=== PATIENT | male | born 1970 | race American Indian/Alaskan Native ===

== ENCOUNTER 2017-03-12 02:17 | Emergency (ER) | payer MEDICAID ==
[2017-03-12 02:24] VITALS: TEMP 98
[2017-03-12 02:25] VITALS: BMI 23.7
--- NOTE | 2017-03-12 02:32 | ED PDOC ---
Arrival/HPI - General Chief Complaint: Shortness Of Breath Time Seen by Provider: 03/12/17 02:24 Historian: Patient - History of Present Illness Narrative History of Present Illness (Text): 03/12/17 02:29 David Mcallister is a 47 year old male who presents to the emergency department via EMS complaining of 2 hour duration of shortness of breath. En route, patient was give 125mg Solumedrol, 1 duoneb, and 2 albuterol treatments for minimal relief. Denies fever, chills, headache, chest pain, palpitations, nausea , vomiting, diarrhea, urinary symptoms or any other complaints at this time. Time/Duration: 1-3 hours Symptom Course: Unchanged Severity Level: Mild Activities at Onset: Light Past Medical History - Provider Review Nursing Documentation Reviewed: Yes - Infectious Disease Hx of Infectious Diseases: None - Cardiac Hx Cardiac Disorders: No - Pulmonary Hx Asthma: Yes Hx Bronchitis: Yes - Neurological Hx Neurological Disorder: No - HEENT Hx HEENT Disorder: No - Renal Hx Renal Disorder: No - Endocrine/Metabolic Hx Endocrine Disorders: No - Hematological/Oncological Hx Blood Disorders: No - Integumentary Hx Dermatological Disorder: No - Musculoskeletal/Rheumatological Hx Musculoskeletal Disorders: No - Gastrointestinal Hx Gastrointestinal Disorders: No - Genitourinary/Gynecological Hx Genitourinary Disorders: No - Psychiatric Hx Psychophysiologic Disorder: No Hx Substance Use: No - Anesthesia Hx Anesthesia: No - Suicidal Assessment Feels Threatened In Home Enviroment: No Family/Social History - Physician Review Nursing Documentation Reviewed: Yes Family/Social History: No Known Family HX Smoking Status: Heavy Smoker > 10 Cigarettes Daily Hx Alcohol Use: Yes Hx Substance Use: No Substance used: herion Allergies/Home Meds Allergies/Adverse Reactions: Allergies No Known Allergies Allergy (Verified 03/12/17 02:26) Review of Systems - Physician Review All systems were reviewed & negative as marked: Yes - Review of Systems Constitutional: Normal. absent: Fatigue, Fevers Respiratory: SOB, Cough. absent: Sputum Cardiovascular: Normal. absent: Chest Pain, Palpitations Gastrointestinal: Normal. absent: Abdominal Pain, Diarrhea, Nausea, Vomiting Neurological: Normal. absent: Headache, Dizziness Physical Exam Vital Signs Reviewed: Yes Vital Signs Temp Pulse Resp BP Pulse Ox 03/12/17 04:17 76 18 119/66 100 03/12/17 02:35 24 100 03/12/17 02:24 98 F 76 24 124/94 H 96 Temperature: Afebrile Blood Pressure: Normal Pulse: Regular Respiratory Rate: Normal Appearance: Positive for: Well-Appearing, Non-Toxic, Comfortable Pain Distress: None Mental Status: Positive for: Alert and Oriented X 3 - Systems Exam Head: Present: Atraumatic, Normocephalic Pupils: Present: PERRL Conjunctiva: Present: Normal Mouth: Present: Moist Mucous Membranes Respiratory/Chest: Present: Wheezes (b/l expiratory wheezing ). No: Respiratory Distress, Accessory Muscle Use Cardiovascular: Present: Regular Rate and Rhythm, Normal S1, S2. No: Murmurs Abdomen: Present: Normal Bowel Sounds. No: Tenderness, Distention, Peritoneal Signs Upper Extremity: Present: Normal Inspection. No: Cyanosis, Edema Lower Extremity: Present: Normal Inspection. No: Edema Neurological: Present: GCS=15, CN II-XII Intact, Speech Normal, Motor Func Grossly Intact, Normal Sensory Function Skin: Present: Warm, Dry, Normal Color. No: Rashes Psychiatric: Present: Alert, Oriented x 3 Medical Decision Making ED Course and Treatment: 03/12/17 02:35 Impression: A 47 year old male who presents to the emergency department complaining of 2 hour duration of shortness of breath. Plan: -- EKG -- Labs, cardiac enzymes -- Chest X-ray -- Duoneb -- Blood Culture -- Reassess and disposition Progress Notes: 03/12/17 02:35 EKG reviewed by me: NSR @ 68 bpm. normal axis. normal interval. Re-evaluation Time: 06:40 Reassessment Condition: Re-examined, Improved - Lab Interpretations Lab Results: 03/12/17 02:29 03/12/17 02:29 Lab Results 03/12/17 02:29: Sodium 134, Chloride 99, Potassium 4.1, Carbon Dioxide 29, Anion Gap 10, BUN 15, Creatinine 0.9, Est GFR ( Amer) > 60, Est GFR (Non- Af Amer) > 60, Random Glucose 118 H, Calcium 8.8, Total Bilirubin 0.3, AST 71 H , ALT 53, Alkaline Phosphatase 59, Lactate Dehydrogenase 881 H, Total Creatine Kinase 919 H, CK-MB (CK-2) 9.1 H, CK-MB (CK-2) % 1.0 L, Troponin I < 0.01, NT- Pro-B Natriuret Pep 36.6, Total Protein 6.5, Albumin 3.5, Globulin 3.0, Albumin/ Globulin Ratio 1.2 03/12/17 02:29: pO2 146 H, VBG pH 7.35, VBG pCO2 54.0, VBG HCO3 29.8 H, VBG Total CO2 31.5 H, VBG O2 Sat (Calc) 99.8 H, VBG Base Excess 2.9 H, VBG Potassium 4.1, Sodium 134.0, Chloride 101.0, Glucose 127 H, Lactate 1.4, FiO2 21.0, Venous Blood Potassium 4.1 03/12/17 02:29: WBC 4.8, RBC 4.13, Hgb 12.2 L, Hct 35.3 L, MCV 85.5, MCH 29.5, MCHC 34.6, RDW 12.4, Plt Count 223, MPV 11.0, Gran % 39.1 L, Lymph % (Auto) 36.2 H, [place] % (Auto) 10.8 H, Eos % (Auto) 13.1 H, Baso % (Auto) 0.8, Gran # 1.88, Lymph # 1.7, [place] # 0.5, Eos # 0.6, Baso # 0.04 - RAD Interpretation Radiology Orders: 03/12/17 02:26 CHEST PORTABLE [RAD] Stat - Medication Orders Current Medication Orders: Discontinued Medications Albuterol/Ipratropium (Duoneb 3 Mg/0.5 Mg (3 Ml) Ud) 3 ml IH Q15M ALEXI Stop: 03/12/17 03:01 Last Admin: 03/12/17 03:18 Dose: 3 ml - Scribe Statement The provider has reviewed the documentation as recorded by the Sandra Garcia Provider Attestation: All medical record entries made by the Sandra were at my direction and personally dictated by me. I have reviewed the chart and agree that the record accurately reflects my personal performance of the history, physical exam, medical decision making, and the department course for this patient. I have also personally directed, reviewed, and agree with the discharge instructions and disposition. Disposition/Present on Arrival - Present on Arrival Any Indicators Present on Arrival: No History of DVT/PE: No History of Uncontrolled Diabetes: No Urinary Catheter: No History of Decub. Ulcer: No History Surgical Site Infection Following: None - Disposition Have Diagnosis and Disposition been Completed?: Yes Diagnosis: Exacerbation of asthma Disposition: HOME/ ROUTINE Disposition Time: 06:40 Condition: GOOD Discharge Instructions (ExitCare): Asthma (ED) Prescriptions: Albuterol 0.5% [Albuterol 0.5% Inhal Ginger (2.5 mg/0.5 ml) UD] 2.5 mg IH QID #25 neb Prednisone [Deltasone] 3 tab PO DAILY #12 tablet Albuterol HFA [Ventolin HFA 90 mcg/actuation (8 g)] 2 puff IH Q6 #1 inhaler Forms: [employer] (Tunisian)
[2017-03-12] MEDS: Albuterol-Ipratrop 3 mg / 0.5 (3 ml) UD IH SCH ×3 (02:41→03:18)
[2017-03-12 02:42] LABS: BASO # 0.04 K/mm3 (0.0-2.0); BASO % 0.8 % (0.0-3.0); EOS # 0.6 (0.0-0.7); EOS % 13.1 % (1.5-5.0); GRAN # 1.88 (1.4-6.5); GRAN % 39.1 % (50.0-68.0); HEMATOCRIT 35.3 % (42.0-52.0); LYMPH # 1.7 (1.2-3.4); LYMPH % 36.2 % (22.0-35.0); MEAN CELL VOLUME 85.5 fl (80.0-105.0); MEAN CORPUSCULAR HEMOGLOBIN 29.5 pg (25.0-35.0); MEAN CORPUSCULAR HGB CONC 34.6 g/dl (31.0-37.0); MONO # 0.5 (0.1-0.6); MONO % 10.8 % (1.0-6.0); RED CELL DISTRIBUTION WIDTH 12.4 % (11.5-14.5); WHITE BLOOD COUNT 4.8 10^3/ul (4.5-11.0)
[2017-03-12 02:46] LABS: VENOUS BLOOD GAS BASE EXCESS 2.9 mmol/L (0.0-2.0); VENOUS BLOOD PH 7.35 (7.32-7.43)
[2017-03-12 02:51] LABS: ALB/GLOB RATIO 1.2 (1.1-1.8); ALKALINE PHOSPHATASE 59 U/L (38-126); ALT/SGPT 53 U/L (7-56); AST/SGOT 71 U/L (17-59); BILIRUBIN,TOTAL 0.3 mg/dL (0.2-1.3); BLOOD UREA NITROGEN 15 mg/dL (7-21); CALCIUM 8.8 mg/dL (8.4-10.5); CARBON DIOXIDE 29 mmol/L (21-33); CHLORIDE 99 mmol/L (98-107); GFR AFRICAN-AMERICAN > 60; GLUCOSE,RANDOM 118 mg/dL (70-110); POTASSIUM 4.1 mmol/L (3.6-5.0); SODIUM 134 mmol/L (132-148); TOTAL PROTEIN 6.5 g/dL (5.8-8.3)
[2017-03-12 03:12] LABS: TROPONIN I < 0.01 ng/mL
[2017-03-12 06:41] VITALS: BP 125/82; PULSE 60; RESP 17; O2SAT 98
--- NOTE | 2017-03-12 07:12 | RAD ---
HISTORY: sob COMPARISON: No prior. FINDINGS: LUNGS: No active pulmonary disease. PLEURA: No significant pleural effusion identified, no pneumothorax apparent. CARDIOVASCULAR: Normal. OSSEOUS STRUCTURES: No significant abnormalities. VISUALIZED UPPER ABDOMEN: Normal. OTHER FINDINGS: None. IMPRESSION: No active disease.
--- NOTE | 2017-03-12 09:55 | CARD ---
APPROVED REPORT EKG Measurement Heart [id number] MI [id number] <Conclusion> Normal sinus rhythm High Voltage.
== END 2017-03-12 06:45 | disposition home or self-care (01) ==
LOC: ED 02:17
DX: J45.901 Unspecified asthma with (acute) exacerbation (principal); F17.210 Nicotine dependence, cigarettes, uncomplicated

== ENCOUNTER 2017-05-10 23:12 | Emergency (ER) | payer MEDICAID ==
[2017-05-10 23:15] VITALS: BMI 23.0
[2017-05-10] MEDS ORDERED: Albuterol-Ipratrop 3 mg / 0.5 (3 ml) UD IH STA ×2 (23:37)
--- NOTE | 2017-05-10 23:47 | ED PDOC ---
Arrival/HPI - General Chief Complaint: Respiratory Distress Time Seen by Provider: 05/10/17 23:28 Historian: Patient - History of Present Illness Narrative History of Present Illness (Text): 05/10/17 23:39 47 year old male, whose past medical history includes asthma, who presents to the emergency department by EMS complaining of shortness of breath prior to arrival. Patient states it was a typical asthma symptom and was given breathing treatment by EMS on the way here. He reports symptoms improving after breathing treatment. Patient also states swelling on the lower extremities bilaterally for the past couple days. Patient reports urinary frequency, but denies fever, nausea, vomiting, and diarrhea. PMD: Dr. Medina Time/Duration: Prior to Arrival Symptom Onset: Sudden Symptom Course: Improving Activities at Onset: Light Context: Home Past Medical History - Provider Review Nursing Documentation Reviewed: Yes - Infectious Disease Hx of Infectious Diseases: None - Cardiac Hx Cardiac Disorders: No - Pulmonary Hx Asthma: Yes Hx Bronchitis: Yes - Neurological Hx Neurological Disorder: No - HEENT Hx HEENT Disorder: No - Renal Hx Renal Disorder: No - Endocrine/Metabolic Hx Endocrine Disorders: No - Hematological/Oncological Hx Blood Disorders: No - Integumentary Hx Dermatological Disorder: No - Musculoskeletal/Rheumatological Hx Musculoskeletal Disorders: No - Gastrointestinal Hx Gastrointestinal Disorders: No - Genitourinary/Gynecological Hx Genitourinary Disorders: No - Psychiatric Hx Psychophysiologic Disorder: No Hx Substance Use: Yes - Anesthesia Hx Anesthesia: No - Suicidal Assessment Feels Threatened In Home Enviroment: No Family/Social History - Physician Review Nursing Documentation Reviewed: Yes Family/Social History: No Known Family HX Smoking Status: Heavy Smoker > 10 Cigarettes Daily Hx Alcohol Use: Yes Frequency of alcohol use: Socially Hx Substance Use: Yes Substance used: heroin Allergies/Home Meds Allergies/Adverse Reactions: Allergies No Known Allergies Allergy (Verified 05/10/17 23:17) Review of Systems - Physician Review All systems were reviewed & negative as marked: Yes - Review of Systems Constitutional: absent: Fevers Respiratory: SOB Cardiovascular: absent: Chest Pain Gastrointestinal: absent: Diarrhea, Nausea, Vomiting Genitourinary Male: Frequency Musculoskeletal: Other (Swelling on lower extremities bilaterally ) Physical Exam - Physical Exam Narrative Physical Exam (Text): Constitutional: No acute distress. Head: Normocephalic. Atraumatic. Eyes: PERRL. ENT: Moist mucous membranes. Neck: Supple. Cardiovascular: Regular rate. Chest: No tenderness. Respiratory: Clear to auscultation bilaterally. Mild expiratory wheeze GI: Soft. Nontender. Nondistended. Back: No CVA tenderness. Musculoskeletal: No tenderness. Mild edema on lower extremities equal bilaterally. Skin: No rash. Neurologic: Alert, no focal deficit. Vital Signs Reviewed: Yes Vital Signs Temp Pulse Resp BP Pulse Ox 05/11/17 00:50 98.0 F 86 17 122/60 99 05/10/17 23:18 98.4 F 90 24 100/62 99 Temperature: Afebrile Blood Pressure: Normal Pulse: Regular Respiratory Rate: Normal Appearance: Positive for: Well-Appearing, Non-Toxic, Comfortable Pain Distress: None Mental Status: Positive for: Alert and Oriented X 3 Medical Decision Making ED Course and Treatment: 05/10/17 23:39 Plan: -- EKG -- Labs -- Chest Two Views X-Ray -- Duoneb -- Urinalysis -- Reassess and disposition Progress Notes: EKG shows NSR at [address] elevations. Interpreted by me. 05/11/17 02:25 CXR Impression: As read by me, no acute disease. Patient with wheezing resolved. In no distress. Ate food. Will discharge, continue steroids and albuterol, f/u PMD, return to ED for worsening breathing, chest pain, fever, or any other problem. - Lab Interpretations Lab Results: 05/10/17 23:30 05/10/17 23:30 Lab Results 05/10/17 23:55: Urine Color Yellow, Urine Appearance Clear, Urine pH 6.0, Ur Specific [place] 1.020, Urine Protein 100 H, Urine Glucose (UA) Negative, Urine Ketones Negative, Urine Blood Small H, Urine Nitrate Negative, Urine Bilirubin Negative, Urine Urobilinogen 1.0 H, Ur Leukocyte Esterase Negative, Urine RBC 5 - 10, Urine WBC 1 - 3, Ur Epithelial Cells 0 - 2, Amorphous Sediment Moderate, Urine Bacteria Many 05/10/17 23:30: Sodium 135, Potassium 4.6, Chloride 101, Carbon Dioxide 26, Anion Gap 13, BUN 13, Creatinine 1.0, Est GFR ( Amer) > 60, Est GFR (Non- Af Amer) > 60, Random Glucose 143 H, Calcium 9.4, Total Bilirubin 0.8, AST 49, ALT 49, Alkaline Phosphatase 65, Total Protein 7.8, Albumin 4.4, Globulin 3.4, Albumin/Globulin Ratio 1.3 05/10/17 23:30: PT 10.3, INR 0.95 05/10/17 23:30: WBC 3.9 L, RBC 3.88, Hgb 11.7 L, Hct 33.7 L, MCV 86.9, MCH 30.2 , MCHC 34.7, RDW 13.1, Plt Count 269, MPV 11.4 H, Gran % 32.6 L, Lymph % (Auto) 43.3 H, [place] % (Auto) 11.3 H, Eos % (Auto) 12.3 H, Baso % (Auto) 0.5, Gran # 1.27 L, Lymph # 1.7, [place] # 0.4, Eos # 0.5, Baso # 0.02 I have reviewed the lab results: Yes - RAD Interpretation Radiology Orders: 05/10/17 23:37 CHEST TWO VIEWS (PA/LAT) [RAD] Stat - EKG Interpretation Interpreted by ED Physician: Yes Type: 12 lead EKG - Medication Orders Current Medication Orders: Discontinued Medications Albuterol/Ipratropium (Duoneb 3 Mg/0.5 Mg (3 Ml) Ud) 3 ml IH STAT STA Stop: 05/10/17 23:38 Last Admin: 05/11/17 00:01 Dose: 3 ml Albuterol/Ipratropium (Duoneb 3 Mg/0.5 Mg (3 Ml) Ud) 3 ml IH STAT STA Stop: 05/10/17 23:38 Last Admin: 05/10/17 23:40 Dose: 3 ml - Scribe Statement The provider has reviewed the documentation as recorded by the Sandra Cam Provider Scribe Attestation: All medical record entries made by the Sandra were at my direction and personally dictated by me. I have reviewed the chart and agree that the record accurately reflects my personal performance of the history, physical exam, medical decision making, and the department course for this patient. I have also personally directed, reviewed, and agree with the discharge instructions and disposition. Disposition/Present on Arrival - Present on Arrival Any Indicators Present on Arrival: No History of DVT/PE: No History of Uncontrolled Diabetes: No Urinary Catheter: No History of Decub. Ulcer: No History Surgical Site Infection Following: CABG - Mediastinitis, None - Disposition Have Diagnosis and Disposition been Completed?: Yes Diagnosis: Asthma attack, Peripheral edema Disposition: HOME/ ROUTINE Disposition Time: 02:24 Patient Plan: Discharge Patient Problems: Current Active Problems Problem Status Onset Asthma attack Acute Peripheral edema Acute Condition: STABLE Discharge Instructions (ExitCare): Asthma (ED), Leg Edema (ED) Prescriptions: Prednisone [Deltasone] 3 tab PO DAILY #12 tablet Referrals: Carson Medina MD [Primary Care Provider] - Follow up with primary Forms: [employer] (Lithuanian)
[2017-05-11 00:06] LABS: ALB/GLOB RATIO 1.3 (1.1-1.8); ALKALINE PHOSPHATASE 65 U/L (38-126); ALT/SGPT 49 U/L (7-56); AST/SGOT 49 U/L (17-59); BILIRUBIN,TOTAL 0.8 mg/dL (0.2-1.3); BLOOD UREA NITROGEN 13 mg/dL (7-21); CALCIUM 9.4 mg/dL (8.4-10.5); CARBON DIOXIDE 26 mmol/L (21-33); CHLORIDE 101 mmol/L (98-107); GFR AFRICAN-AMERICAN > 60; GLUCOSE,RANDOM 143 mg/dL (70-110); POTASSIUM 4.6 mmol/L (3.6-5.0); SODIUM 135 mmol/L (132-148); TOTAL PROTEIN 7.8 g/dL (5.8-8.3)
[2017-05-11 00:23] LABS: BASO # 0.02 K/mm3 (0.0-2.0); BASO % 0.5 % (0.0-3.0); EOS # 0.5 (0.0-0.7); EOS % 12.3 % (1.5-5.0); GRAN # 1.27 (1.4-6.5); GRAN % 32.6 % (50.0-68.0); HEMATOCRIT 33.7 % (42.0-52.0); LYMPH # 1.7 (1.2-3.4); LYMPH % 43.3 % (22.0-35.0); MEAN CELL VOLUME 86.9 fl (80.0-105.0); MEAN CORPUSCULAR HEMOGLOBIN 30.2 pg (25.0-35.0); MEAN CORPUSCULAR HGB CONC 34.7 g/dl (31.0-37.0); MEAN PLATELET VOLUME 11.4 fl (7.0-11.0); MONO # 0.4 (0.1-0.6); MONO % 11.3 % (1.0-6.0); RED CELL DISTRIBUTION WIDTH 13.1 % (11.5-14.5); WHITE BLOOD COUNT 3.9 10^3/ul (4.5-11.0)
[2017-05-11 00:24] LABS: URINE BILIRUBIN NEGATIVE (NEGATIVE); URINE BLOOD SMALL (NEGATIVE); URINE GLUCOSE (UA) NEGATIVE (NEGATIVE); URINE KETONE NEGATIVE (NEGATIVE); URINE LEUKOCYTE ESTERASE NEGATIVE Leu/uL (NEGATIVE); URINE PROTEIN 100 mg/dL (<30 mg/dL)
[2017-05-11 00:32] LABS: URINE APPEARANCE CLEAR (CLEAR); URINE COLOR YELLOW (YELLOW)
[2017-05-11 00:45] LABS: INR 0.95 (0.93-1.08)
[2017-05-11 01:40] LABS: URINE AMORPHOUS SEDIMENT MODERATE; URINE BACTERIA MANY (NEG); URINE EPITHELIAL CELLS 0 - 2 /hpf (0-5)
[2017-05-11 04:26] VITALS: RESP 16; TEMP 98
[2017-05-11 06:13] VITALS: BP 129/73; PULSE 77; O2SAT 99
--- NOTE | 2017-05-11 07:47 | RAD ---
HISTORY: dyspnea COMPARISON: Comparison is made to prior study dated 03/12/2017 TECHNIQUE: Chest PA and lateral FINDINGS: LUNGS: No active pulmonary disease. PLEURA: No significant pleural effusion identified. No pneumothorax apparent. CARDIOVASCULAR: Normal. OSSEOUS STRUCTURES: No significant abnormalities. VISUALIZED UPPER ABDOMEN: Normal. OTHER FINDINGS: None. IMPRESSION: No active disease. No significant interval change since the previous exam.
--- NOTE | 2017-05-12 10:16 | CARD ---
APPROVED REPORT EKG Measurement Heart [id number] <Conclusion> Normal sinus rhythm Possible Left atrial enlargement Incomplete right bundle branch block Borderline ECG
== END 2017-05-11 06:13 | disposition home or self-care (01) ==
LOC: ED 23:12
DX: J45.909 Unspecified asthma, uncomplicated (principal); R60.0 Localized edema; F17.210 Nicotine dependence, cigarettes, uncomplicated

== ENCOUNTER 2017-05-20 22:57 | Emergency (ER) | payer MEDICAID ==
[2017-05-20 22:59] VITALS: BMI 23.7
[2017-05-20 23:05] VITALS: TEMP 98.6
[2017-05-20 23:31] VITALS: RESP 18; O2SAT 96
--- NOTE | 2017-05-20 23:31 | ED PDOC ---
Arrival/HPI <Chapito Rios - Last Filed: 05/21/17 00:51> - General Historian: Patient <Tamir Leal - Last Filed: 05/21/17 06:45> - General Chief Complaint: Shortness Of Breath Time Seen by Provider: 05/20/17 23:09 - History of Present Illness Narrative History of Present Illness (Text): 47 year old male with PMhx of Asthma who presents to the ED with complaints of SOB that started this morning. Patient stated that in the morning he began to feel slightly SOB. His SOB worsened at work and continued to worsen with exertion. Patient works stiven area which he feels may have exacerbated his symptoms. Patient used his Ventolin inhaler several times today for relief of his symptoms without any success. En route to the ED, patient received one duoneb treatment, an albuterol IH, and 1 dose of 125mg Solumedrol. Patient states his symptoms have improved since he called the ambulance. Patient states he can normally walk 4 blocks and climb 4 flights of stairs without getting out of breath. Patient states he has needed pillows to breath correctly when sleeping but only once or twice. ROS POSITIVE: chills, chest tightness, productive cough, and chest congestion, questionable orthopnea NEGATIVE: Fever, headache, dizziness, sick contacts, chest pain, palpitations , N/V/D, constipation, changes in urination. PMHx: Asthma PSHx: Denies Allergies: NKDA Social Hx: 10 cigarettes a day for about 34 years. Finishes a 12 pack of beer in 3 days. Admits to marijuana, cocaine, and heroin use. FamHx: Denies Meds: Ventolin 05/20/17 23:41 (Tamir Leal) Past Medical History - Provider Review Nursing Documentation Reviewed: Yes - Infectious Disease Hx of Infectious Diseases: None - Cardiac Hx Cardiac Disorders: No - Pulmonary Hx Asthma: Yes Hx Bronchitis: Yes - Neurological Hx Neurological Disorder: No - HEENT Hx HEENT Disorder: No - Renal Hx Renal Disorder: No - Endocrine/Metabolic Hx Endocrine Disorders: No - Hematological/Oncological Hx Blood Disorders: No - Integumentary Hx Dermatological Disorder: No - Musculoskeletal/Rheumatological Hx Musculoskeletal Disorders: No - Gastrointestinal Hx Gastrointestinal Disorders: No - Genitourinary/Gynecological Hx Genitourinary Disorders: No - Psychiatric Hx Psychophysiologic Disorder: No Hx Substance Use: Yes - Anesthesia Hx Anesthesia: No - Suicidal Assessment Feels Threatened In Home Enviroment: No <Tamir Leal - Last Filed: 05/21/17 06:45> Family/Social History - Physician Review Nursing Documentation Reviewed: Yes Family/Social History: No Known Family HX Smoking Status: Heavy Smoker > 10 Cigarettes Daily Hx Alcohol Use: Yes Hx Substance Use: Yes Substance used: heroin <Tamir Leal - Last Filed: 05/21/17 06:45> Allergies/Home Meds <BayleeChapito pond - Last Filed: 05/21/17 00:51> <Tamir Leal - Last Filed: 05/21/17 06:45> Allergies/Adverse Reactions: Allergies No Known Allergies Allergy (Verified 05/20/17 22:58) Home Medications: Home Meds Medication Instructions Recorded Confirmed Albuterol HFA [Ventolin HFA 90 1 puff IH DAILY 05/20/17 05/20/17 mcg/actuation (8 g)] Review of Systems - Physician Review All systems were reviewed & negative as marked: Yes (As per HPI) - Review of Systems Respiratory: SOB Cardiovascular: Normal Gastrointestinal: Normal <Tamir Leal - Last Filed: 05/21/17 06:45> Physical Exam Vital Signs Reviewed: Yes Temperature: Afebrile Pulse: Regular Respiratory Rate: Normal Appearance: Positive for: Non-Toxic Mental Status: Positive for: Alert and Oriented X 3 - Systems Exam Head: Present: Atraumatic, Normocephalic Conjunctiva: Present: Normal Mouth: Present: Moist Mucous Membranes Pharnyx: Present: Normal Nose (External): Present: Atraumatic Neck: No: JVD, Lymphadenopathy Respiratory/Chest: Present: Wheezes (B/L, Diffuse). No: Respiratory Distress, Accessory Muscle Use, Retracting Cardiovascular: Present: Regular Rate and Rhythm, Normal S1, S2. No: Murmurs, Tachycardic Abdomen: Present: Normal Bowel Sounds. No: Tenderness, Distention, Rebound, Mass/Organomegaly Upper Extremity: Present: Capillary Refill < 2s Lower Extremity: Present: Normal Inspection. No: Edema, CALF TENDERNESS Neurological: Present: GCS=15, Speech Normal Skin: Present: Other (Vitiligo) Lymphatic: No: Cervical Adenopathy Psychiatric: Present: Alert, Oriented x 3 <Tamir Leal - Last Filed: 05/21/17 06:45> Vital Signs Temp Pulse Resp BP Pulse Ox 05/20/17 23:28 18 96 05/20/17 23:05 98.6 F 19 L 75 H 149/88 98 05/20/17 22:59 98.6 F 89 18 149/88 98 Medical Decision Making <Chapito Rios - Last Filed: 05/21/17 00:51> Reassessment Condition: Re-examined, Improved <Tamir Leal - Last Filed: 05/21/17 06:45> ED Course and Treatment: Patient Seen With Resident: In agreement with resident note which contains more details about the patient. Patient was seen and evaluated with resident. Came up with plan and treatment together. A 47 year old male with shortness of breath, chest tightness and chills. Additional HPI as noted by resident. On physical exam, patient has bilateral and diffuse wheezing, no retracting. Ordered chest xray and labs. Will give patient Duoneb. (Chapito Rios) SOB 2/2 to Asthma Exacerbation Received: DuoNebs, Albuterol, and 125 Solumedrol in Ambulance --CBC/CMP --Duonebs x 2 --CXR --Assess and Disposition. 05/21/17 00:18 (Tamir Leal) - Lab Interpretations Lab Results: 05/20/17 23:15 05/20/17 23:15 Lab Results 05/20/17 23:15: Sodium 139, Potassium 4.4, Chloride 100, Carbon Dioxide 32, Anion Gap 11, BUN 11, Creatinine 1.0, Est GFR ( Amer) > 60, Est GFR (Non- Af Amer) > 60, Random Glucose 91, Calcium 9.4, Total Bilirubin 0.8, AST 78 H D, ALT 55, Alkaline Phosphatase 70, Total Protein 7.8, Albumin 4.2, Globulin 3.6, Albumin/Globulin Ratio 1.2 05/20/17 23:15: WBC 6.2 D, RBC 4.46, Hgb 13.3 L, Hct 39.7 L, MCV 89.0, MCH 29.8 , MCHC 33.5, RDW 13.2, Plt Count 212, MPV 11.2 H, Gran % 64.1, Lymph % (Auto) 15.4 L, [place] % (Auto) 11.7 H, Eos % (Auto) 8.3 H, Baso % (Auto) 0.5, Gran # 3.99 , Lymph # 1.0 L, [place] # 0.7 H, Eos # 0.5, Baso # 0.03 - RAD Interpretation Radiology Orders: 05/20/17 23:36 CHEST PORTABLE [RAD] Stat - Medication Orders Current Medication Orders: Discontinued Medications Albuterol/Ipratropium (Duoneb 3 Mg/0.5 Mg (3 Ml) Ud) 3 ml IH STAT STA Stop: 05/20/17 23:37 Last Admin: 05/20/17 23:56 Dose: 3 ml Albuterol/Ipratropium (Duoneb 3 Mg/0.5 Mg (3 Ml) Ud) 3 ml IH ONCE ONE Stop: 05/21/17 00:31 Last Admin: 05/21/17 00:50 Dose: 3 ml - Scribe Statement The provider has reviewed the documentation as recorded by the Scribe <Chapito Rios - Last Filed: 05/21/17 00:51> <Tamir Leal - Last Filed: 05/21/17 06:45> - Scribe Statement Soco Schreiber Provider Scribe Attestation: All medical record entries made by the Scribe were at my direction and personally dictated by me. I have reviewed the chart and agree that the record accurately reflects my personal performance of the history, physical exam, medical decision making, and the department course for this patient. I have also personally directed, reviewed, and agree with the discharge instructions and disposition. (Chapito Rios) Disposition/Present on Arrival <Chapito Rios - Last Filed: 05/21/17 00:51> - Present on Arrival Any Indicators Present on Arrival: No History of DVT/PE: No History of Uncontrolled Diabetes: No Urinary Catheter: No History of Decub. Ulcer: No History Surgical Site Infection Following: None - Disposition Have Diagnosis and Disposition been Completed?: Yes Disposition Time: 06:40 Patient Plan: Discharge <Tamir Leal - Last Filed: 05/21/17 06:45> - Disposition Diagnosis: Acute asthma exacerbation Disposition: HOME/ ROUTINE Condition: FAIR Discharge Instructions (ExitCare): Asthma (ED) Additional Instructions: Please follow up with your primary medical physician Take medications as instructed to completion If symptoms return or worsen, please return to the ED Prescriptions: predniSONE [Prednisone] 20 mg PO TID 5 Days tab Referrals: Carson Medina MD [Primary Care Provider] - Follow up with primary Forms: [employer] (Yi)
[2017-05-20] MEDS ORDERED: Albuterol-Ipratrop 3 mg / 0.5 (3 ml) UD IH STA (23:36)
[2017-05-20 23:55] LABS: BASO # 0.03 K/mm3 (0.0-2.0); BASO % 0.5 % (0.0-3.0); EOS # 0.5 (0.0-0.7); EOS % 8.3 % (1.5-5.0); GRAN # 3.99 (1.4-6.5); GRAN % 64.1 % (50.0-68.0); HEMATOCRIT 39.7 % (42.0-52.0); LYMPH % 15.4 % (22.0-35.0); MEAN CORPUSCULAR HEMOGLOBIN 29.8 pg (25.0-35.0); MEAN CORPUSCULAR HGB CONC 33.5 g/dl (31.0-37.0); MEAN PLATELET VOLUME 11.2 fl (7.0-11.0); MONO # 0.7 (0.1-0.6); MONO % 11.7 % (1.0-6.0); RED CELL DISTRIBUTION WIDTH 13.2 % (11.5-14.5); WHITE BLOOD COUNT 6.2 10^3/ul (4.5-11.0)
[2017-05-21 00:02] LABS: ALB/GLOB RATIO 1.2 (1.1-1.8); ALKALINE PHOSPHATASE 70 U/L (38-126); ALT/SGPT 55 U/L (7-56); AST/SGOT 78 U/L (17-59); BILIRUBIN,TOTAL 0.8 mg/dL (0.2-1.3); CALCIUM 9.4 mg/dL (8.4-10.5); CARBON DIOXIDE 32 mmol/L (21-33); CHLORIDE 100 mmol/L (98-107); GFR AFRICAN-AMERICAN > 60; GLUCOSE,RANDOM 91 mg/dL (70-110); POTASSIUM 4.4 mmol/L (3.6-5.0); SODIUM 139 mmol/L (132-148); TOTAL PROTEIN 7.8 g/dL (5.8-8.3)
[2017-05-21 00:26] LABS: BLOOD UREA NITROGEN 11 mg/dL (7-21)
[2017-05-21] MEDS ORDERED: Albuterol-Ipratrop 3 mg / 0.5 (3 ml) UD IH ONE (00:30)
[2017-05-21 06:40] VITALS: BP 143/85; PULSE 58
--- NOTE | 2017-05-21 09:11 | RAD ---
HISTORY: SOB COMPARISON: [id number] FINDINGS: LUNGS: Clear PLEURA: No significant pleural effusion identified, no pneumothorax apparent. CARDIOVASCULAR: No radiographic findings to suggest acute or significant cardiovascular disease. OSSEOUS STRUCTURES: No significant abnormalities. VISUALIZED UPPER ABDOMEN: Normal. OTHER FINDINGS: None. IMPRESSION: No active disease. No significant interval change compared to the prior examination(s).
--- NOTE | 2017-05-21 10:30 | CARD ---
APPROVED REPORT EKG Measurement Heart [id number] PA 122P81 [id number] <Conclusion> Normal sinus rhythm with sinus arrhythmia Biatrial enlargement Incomplete right bundle branch block
== END 2017-05-21 07:01 | disposition home or self-care (01) ==
LOC: ED 22:57
DX: J45.901 Unspecified asthma with (acute) exacerbation (principal); F17.210 Nicotine dependence, cigarettes, uncomplicated